=== PATIENT | female | born 1960 ===

== ENCOUNTER 2021-03-07 10:46 | Inpatient (IN) ==
[~2021-03-07 10:46] MED LIST: Buffered Lidocaine 1% SYRIN 1 ml INTRADERM ONE; DiMENhydriNATE IV 50 mg/ml 1 ml VIAL IV PUSH ONE; HYDROcodone/ACETAMIN 5/325 mg TAB PO PRN; Lactated Ringers 1000 ml BAG 1,000 ML IV SCH; Metoclopramide 5 MG/ML VIAL (10 mg) IV PRN; Naloxone 0.4 mg VIAL 0.4 mg/ml 1 ml VIAL IV PRN; Ondansetron 4 mg VIAL 2 MG/ML 2 ml VIAL IV PRN
[2021-03-07] MEDS ORDERED: ceFAZolin 2 GM in NS PREMIX 2 GM/100 ML BAG IVPB ONE (11:11)
[2021-03-07] MEDS ORDERED: DiMENhydriNATE IV 50 mg/ml 1 ml VIAL ONE (11:11)
[2021-03-07] MEDS ORDERED: Midazolam 2 mg/2 ml VIAL 1 mg/ml 2 ml VIAL (2 mg) ONE ×2 (11:37→17:24)
[2021-03-07] MEDS ORDERED: fentaNYL 100 mcg/2 ml 50 MCG/ML VIAL ONE ×3 (11:37→18:05)
[2021-03-07] MEDS ORDERED: Bupivacaine 0.5% SDV PF 30ML VIAL ONE (12:45)
[2021-03-07] MEDS ORDERED: Lidocaine 2% PF 5 ML VIAL ONE (12:57)
[2021-03-07] MEDS ORDERED: Glycopyrrolate IV 0.2 MG/ML 1 ML VIAL ONE (12:58)
[2021-03-07] MEDS ORDERED: ROPIVACAINE 5 MG/ML 30 ML BTL (0.5%) ONE (13:19)
[2021-03-07] MEDS ORDERED: Rocuronium 50 mg VIAL 10 mg/ml 5 ml VIAL (50 mg) ONE ×3 (14:03→15:36)
[2021-03-07] MEDS ORDERED: Ondansetron 4 mg VIAL 2 MG/ML 2 ml VIAL IV PRN (14:26)
[2021-03-07] MEDS ORDERED: diPHENhydraMINE IV 50 MG/ML 1 ml VIAL (BENADRYL) IV PRN (14:26)
[2021-03-07] MEDS ORDERED: diPHENhydraMINE 25 mg TAB PO PRN (14:26)
[2021-03-07] MEDS ORDERED: Lactulose 30 ml UDC PO PRN (14:26)
[2021-03-07] MEDS ORDERED: Ondansetron ODT 4 mg TAB 4 MG TAB PO PRN (14:26)
[2021-03-07] MEDS ORDERED: Magnesium Hydroxide LIQ 30 ML UDC PO PRN (14:26)
[2021-03-07] MEDS ORDERED: Dexamethasone IV 4 MG/ML VIAL 1 ml VIAL ONE (14:42)
[2021-03-07] MEDS ORDERED: Ondansetron 4 mg VIAL 2 MG/ML 2 ml VIAL ONE ×2 (14:42→16:49)
[2021-03-07] MEDS ORDERED: HYDROmorphone 1 MG/1 ML SYRINGE ONE (14:48)
[2021-03-07] MEDS ORDERED: Lactated Ringers 1000 ml BAG 1,000 ML IV SCH (15:00)
[2021-03-07] MEDS ORDERED: Labetalol IV 5 MG/ML 20 ml VIAL ONE (15:54)
[2021-03-07] MEDS ORDERED: Metoclopramide 5 MG/ML VIAL (10 mg) ONE (16:49)
[2021-03-07] MEDS: fentaNYL 100 mcg/2 ml 50 MCG/ML VIAL IV PRN ×5 (16:51→18:08)
[2021-03-07] MEDS ORDERED: HYDROcodone/ACETAMIN 5/325 mg TAB ONE (16:58)
[2021-03-07] MEDS ORDERED: Midazolam 2 mg/2 ml VIAL 1 mg/ml 2 ml VIAL (2 mg) IV SLOW PU ONE (17:03)
[2021-03-07] MEDS: Magnesium Hydroxide LIQ 30 ML UDC PO SCH (19:58)
[2021-03-07] MEDS: ceFAZolin 1 GM ADVAN 1 GM in NS 0.9% 50 ML 50 ML IVPB SCH (22:40)
[2021-03-08] MEDS: ceFAZolin 1 GM ADVAN 1 GM in NS 0.9% 50 ML 50 ML IVPB SCH ×2 (05:55→14:16)
[2021-03-08 06:20] LABS: Calcium 8.5 mg/dL (8.6-10.3); Potassium 4.7 mmol/L (3.5-5.0)
[2021-03-08 06:26] LABS: EGFR Non-African American 71.1 (>60)
[2021-03-08 06:32] LABS: Hematocrit 29 % (35-47); Hemoglobin 9.8 g/dL (12.0-16.0); Mean Platelet Volume 7.9 fL (7.4-10.4); Platelet Count 209 10^3/uL (150-450)
[2021-03-08 07:38] LABS: HIV 4th Generation Nonreactive (Nonreactive)
[2021-03-08] MEDS: Magnesium Hydroxide LIQ 30 ML UDC PO SCH ×2 (07:45→21:20)
[2021-03-08] MEDS: Vitamin THERAPEUTIC TAB PO SCH (07:52)
[2021-03-08] MEDS ORDERED: NS 0.9% 500 ml BAG 500 ML IV ONE (17:40)
[2021-03-08] MEDS: Morphine 2 MG/ML SYRINGE IV PRN (21:16)
[2021-03-09] MEDS: Morphine 2 MG/ML SYRINGE IV PRN (01:16)
[2021-03-09 05:04] LABS: Hematocrit 27 % (35-47); Mean Platelet Volume 7.2 fL (7.4-10.4); Platelet Count 233 10^3/uL (150-450)
[2021-03-09 07:53] VITALS: BP 106/53
[2021-03-09] MEDS: Vitamin THERAPEUTIC TAB PO SCH (08:01)
[2021-03-09] MEDS: Magnesium Hydroxide LIQ 30 ML UDC PO SCH (08:03)
== END 2021-03-09 14:40 | disposition home health service (06) | DRG 302 ==
LOC: AA 10:46 → SSU 18:39
PROVIDERS: ADMIT Orthopaedic Surgery Adult Reconstructive Orthopaedic Surgery; ATTEND Orthopaedic Surgery Adult Reconstructive Orthopaedic Surgery

== ENCOUNTER 2021-07-23 09:39 | Inpatient (IN) ==
[~2021-07-23 09:39] MED LIST changes: -DiMENhydriNATE IV 50 mg/ml 1 ml VIAL IV PUSH ONE; -HYDROcodone/ACETAMIN 5/325 mg TAB PO PRN; -Metoclopramide 5 MG/ML VIAL (10 mg) IV PRN; -Naloxone 0.4 mg VIAL 0.4 mg/ml 1 ml VIAL IV PRN; -Ondansetron 4 mg VIAL 2 MG/ML 2 ml VIAL IV PRN; +ceFAZolin 2 GM PREMIX 2 GM/50 ML BAG ONE
[2021-07-23] MEDS ORDERED: Lidocaine 2% PF 5 ML VIAL ONE (10:28)
[2021-07-23] MEDS ORDERED: Propofol 10 MG/ML 20 ML BTL ONE ×2 (10:28→11:46)
[2021-07-23] MEDS ORDERED: Midazolam 2 mg/2 ml VIAL 1 mg/ml 2 ml VIAL (2 mg) ONE (10:28)
[2021-07-23] MEDS ORDERED: fentaNYL 100 mcg/2 ml 50 MCG/ML VIAL ONE ×2 (10:28→13:36)
[2021-07-23] MEDS ORDERED: Dexamethasone IV 4 MG/ML VIAL 1 ml VIAL ONE (11:43)
[2021-07-23] MEDS ORDERED: Dexmedetomidine 200 mcg/2 ml 2 ml VIAL (200 mcg) ONE (11:43)
[2021-07-23] MEDS ORDERED: Lidocaine 1% MPF 5 ML VIAL ONE (11:46)
[2021-07-23] MEDS ORDERED: Bupivacaine 0.5% SDV PF 30ML VIAL ONE (11:46)
[2021-07-23] MEDS ORDERED: Ropivacaine 5 MG/ML 20 ML VIAL 0.5% (100 MG) ONE ×2 (11:54→14:15)
[2021-07-23] MEDS ORDERED: Sterile Water for Inj 10 ML ONE (12:57)
[2021-07-23] MEDS ORDERED: EPHEDrine (Pressors) 50 MG/ML VIAL ONE (12:57)
[2021-07-23] MEDS ORDERED: HYDROmorphone 1 MG/1 ML SYRINGE IV PRN (13:04)
[2021-07-23] MEDS ORDERED: Naloxone 0.4 mg VIAL 0.4 mg/ml 1 ml VIAL IV PRN (13:04)
[2021-07-23] MEDS ORDERED: Ondansetron 4 mg VIAL 2 MG/ML 2 ml VIAL IV PRN ×2 (13:04→13:46)
[2021-07-23] MEDS ORDERED: Phenylephrine 40 mcg/mL 10mL (400mcg) SYRINGE ONE (13:17)
[2021-07-23] MEDS ORDERED: HYDROmorphone 0.5 MG/0.5 ML SYRINGE ONE ×2 (13:35)
[2021-07-23] MEDS ORDERED: Acetaminophen IV 1 GM/100ML 100 ML IV ONE (13:40)
[2021-07-23] MEDS ORDERED: diPHENhydraMINE 25 mg TAB PO PRN (13:46)
[2021-07-23] MEDS ORDERED: Ondansetron ODT 4 mg TAB 4 MG TAB PO PRN (13:46)
[2021-07-23] MEDS ORDERED: Lactulose 30 ml UDC PO PRN (13:46)
[2021-07-23] MEDS ORDERED: diPHENhydraMINE IV 50 MG/ML 1 ml VIAL (BENADRYL) IV PRN (13:46)
[2021-07-23] MEDS ORDERED: Morphine 2 MG/ML SYRINGE IV PRN (13:46)
[2021-07-23] MEDS ORDERED: Magnesium Hydroxide LIQ 30 ML UDC PO PRN (13:46)
[2021-07-23] MEDS ORDERED: hydrALAZINE 20 mg/ml 1 ML Vial IV ONE (13:51)
[2021-07-23] MEDS ORDERED: Labetalol IV 5 MG/ML 20 ml VIAL ONE (13:53)
[2021-07-23] MEDS ORDERED: METHOCARBAMOL 750 MG PO SCH (14:00)
[2021-07-23] MEDS: Lactated Ringers 1000 ml BAG 1,000 ML IV SCH (19:39)
[2021-07-23] MEDS: ceFAZolin 1 GM ADVAN 1 GM in NS 0.9% 50 ML 50 ML IVPB SCH (20:40)
[2021-07-23] MEDS: Morphine ER 15 mg TAB ** extended release PO SCH (20:41)
[2021-07-23] MEDS: Magnesium Hydroxide LIQ 30 ML UDC PO SCH (20:44)
[2021-07-24] MEDS: ceFAZolin 1 GM ADVAN 1 GM in NS 0.9% 50 ML 50 ML IVPB SCH ×2 (04:35→12:21)
[2021-07-24] MEDS: Lactated Ringers 1000 ml BAG 1,000 ML IV SCH (04:51)
[2021-07-24 06:05] LABS: Hematocrit 29 % (35-47); Hemoglobin 9.5 g/dL (12.0-16.0); Platelet Count 375 10^3/uL (150-450)
[2021-07-24 06:21] LABS: Calcium 8.7 mg/dL (8.6-10.3); Potassium 4.2 mmol/L (3.5-5.0); eGFR CKD-EPI 90.5 (>60)
[2021-07-24] MEDS: Magnesium Hydroxide LIQ 30 ML UDC PO SCH (08:18)
[2021-07-24] MEDS: Morphine ER 15 mg TAB ** extended release PO SCH (08:19)
[2021-07-24 08:53] VITALS: BP 135/79
[2021-07-24] MEDS ORDERED: Vitamin THERAPEUTIC TAB PO SCH (09:00)
== END 2021-07-24 14:20 | disposition home or self-care (01) | DRG 302 ==
LOC: AA 09:39 → SSU 17:32
PROVIDERS: ADMIT Orthopaedic Surgery Adult Reconstructive Orthopaedic Surgery; ATTEND Orthopaedic Surgery Adult Reconstructive Orthopaedic Surgery